=== PATIENT | female | born 1965 | race American Indian/Alaskan Native ===

== ENCOUNTER 2017-01-17 10:47 | Outpatient (CLI) | payer MEDICARE ==
--- NOTE | 2017-01-17 12:11 | Ultrasound Report ---
Diagnostic mammogram and bilateral breast sonogram and spot compression magnification views of the densities left breast: Compared to 02/15/16. CAD study utilized. History: Pain left and right breast. Findings: Predominance adipose tissue bilaterally. Focal asymmetry upper and outer left breast. Spot compression magnification view reveals effacement of the density and without mass or microcalcification. Sonographic examination of right and left breast reveals no distinct cystic or solid mass. Impression: Benign findings. Annual followup with mammogram recommended. BI-RADS CATEGORY: 2 = Benign ACR BI-RADS MAMMOGRAPHIC CODES: 0 = Needs additional imaging evaluation; 1 = Negative; 2 = Benign; 3 = Probably benign; 4 = Suspicious; 5 = Malignant; 6 = Known biopsy-proven malignancy COMMENT: 1. Dense breast tissue, i.e., adenosis, fibrocystic changes, etc., may obscure an underlying neoplasm. 2. Approximately 10% of cancers are not detected with mammography. 3. A negative mammography report should not delay biopsy if a clinically suspicious mass is present. COMMENT: Patient follow-up letters are generated in [employer].
== END 2017-01-17 10:48 | disposition home or self-care (01) ==
LOC: MAMMO 10:47
PROVIDERS: ATTEND Internal Medicine
DX: N64.4 Mastodynia (principal); J45.909 Unspecified asthma, uncomplicated; F17.200 Nicotine dependence, unspecified, uncomplicated
CPT/HCPCS: 76641; G0204; 77066